=== PATIENT | female | born 1985 | race American Indian/Alaskan Native ===

== ENCOUNTER 2017-07-01 18:40 | Observation (INO) | payer BC ==
[2017-07-01] MEDS ORDERED: ASPIRIN PO ONE (18:59)
[2017-07-01 19:26] LABS: Basophils # (Auto) 0.1 K/mm3 (0.0-0.1); Basophils % (Auto) 0.5 % (0.0-1.8); Eosinophils # (Auto) 0.1 K/mm3 (0.0-0.4); Eosinophils % (Auto) 0.7 % (0.0-4.3); Hemoglobin 13.2 gm/dl (10.1-14.3); Lymphocytes # (Auto) 2.7 K/mm3 (1.2-5.4); Lymphocytes % (Auto) 25.2 % (13.4-35.0); Monocytes # (Auto) 0.7 K/mm3 (0.0-0.8); Monocytes % (Auto) 6.6 % (0.0-7.3)
[2017-07-01 19:35] LABS: Hematocrit 38.9 % (30.3-42.9); Mean Corpuscular Volume 88 fl (79-97)
[2017-07-01 19:36] LABS: Mean Corpuscular HGB Conc 34 % (30-34); Mean Corpuscular Hemoglobin 30 pg (28-32); Mean Platelet Volume 7.1 fl (6-12); Platelet Count 385 K/mm3 (140-440); Red Cell Distribution Width 13.5 % (13.2-15.2)
[2017-07-01 20:13] LABS: BUN/Creatinine Ratio 13; Blood Urea Nitrogen 12 mg/dL (7-17); Calcium 9.1 mg/dL (8.4-10.2); Hemolysis Index 2
[2017-07-01] MEDS ORDERED: NITRO-BID 2% TP ONE (20:18)
--- NOTE | 2017-07-01 20:25 | Emergency Department Report ---
HPI - General Chief Complaint: Chest Pain Time Seen by Provider: 07/01/17 20:06 - HPI HPI: Room 5 The patient is a 32-year-old female presenting with chief complaint of chest pain. Patient states her symptoms began today with substernal chest pain described as a pressure and sharpness that has been intermittent. The patient states her pain is associated with shortness of breath and nausea but denies vomiting or diaphoresis. Patient denies cough or fever. The patient states she 's never had a stress test or cardiac catheterization. The patient states she has a family history of heart disease Location: Chest Duration: Intermittent times one day Quality: Pressure/sharp Severity: Currently 0/10 Modifying factors: [see above] Context: [see above] Mode of transportation: [not driving] ED Past Medical Hx - Past Medical History Previous Medical History?: No - Surgical History Past Surgical History?: Yes Hx Appendectomy: Yes Additional Surgical History: C/S x4, tonsillectomy - Family History Family history: no significant - Social History Smoking Status: Former Smoker (none 14 years) Substance Use Type: None (denies illicit drug use) ED Review of Systems ROS: Stated complaint: CHEST PAIN Other details as noted in HPI Constitutional: denies: diaphoresis, fever Respiratory: shortness of breath. denies: cough Cardiovascular: chest pain Gastrointestinal: nausea. denies: vomiting Physical Exam - Physical Exam Vital Signs: Vital Signs 07/01/17 07/01/17 18:55 20:13 Temperature 97.7 F 97.9 F Pulse Rate 88 77 Respiratory 18 19 Rate Blood Pressure 133/81 Blood Pressure 119/78 [Left] O2 Sat by Pulse 100 100 Oximetry Physical Exam: GENERAL: The patient is well-developed well-nourished female sitting on stretcher not appearing to be in acute distress. [] HEENT: Normocephalic. Atraumatic. Extraocular motions are intact. Patient has moist mucous membranes. NECK: Supple. Trachea midline CHEST/LUNGS: Clear to auscultation. There is no respiratory distress noted. HEART/CARDIOVASCULAR: Regular. There is no tachycardia. There is no gallop rub or murmur. ABDOMEN: Abdomen is soft, nontender. Patient has normal bowel sounds. There is no abdominal distention. SKIN: There is no rash. There is no edema. There is no diaphoresis. NEURO: The patient is awake, alert, and oriented. The patient is cooperative. The patient has normal speech MUSCULOSKELETAL: There is no evidence of acute injury. ED Course Vital Signs 07/01/17 07/01/17 18:55 20:13 Temperature 97.7 F 97.9 F Pulse Rate 88 77 Respiratory 18 19 Rate Blood Pressure 133/81 Blood Pressure 119/78 [Left] O2 Sat by Pulse 100 100 Oximetry ED Medical Decision Making - Lab Data Result diagrams: 07/01/17 19:18 07/01/17 19:18 Laboratory Tests 07/01/17 07/01/17 07/01/17 19:18 19:18 19:18 WBC 10.6 RBC 4.40 Hgb 13.2 Hct 38.9 MCV 88 MCH 30 MCHC 34 RDW 13.5 Plt Count 385 Lymph % (Auto) 25.2 [place] % (Auto) 6.6 Eos % (Auto) 0.7 Baso % (Auto) 0.5 Lymph # 2.7 [place] # 0.7 Eos # 0.1 Baso # 0.1 Seg Neutrophils % 67.0 Seg Neutrophils # 7.1 D-Dimer < 135.00 Sodium 139 Potassium 4.9 Chloride 102.2 Carbon Dioxide 28 Anion Gap 14 BUN 12 Creatinine 0.9 Estimated GFR > 60 BUN/Creatinine Ratio 13 Glucose 96 Calcium 9.1 Troponin T < 0.010 HCG, Qual 07/01/17 19:18 WBC RBC Hgb Hct MCV MCH MCHC RDW Plt Count Lymph % (Auto) [place] % (Auto) Eos % (Auto) Baso % (Auto) Lymph # [place] # Eos # Baso # Seg Neutrophils % Seg Neutrophils # D-Dimer Sodium Potassium Chloride Carbon Dioxide Anion Gap BUN Creatinine Estimated GFR BUN/Creatinine Ratio Glucose Calcium Troponin T HCG, Qual Negative - EKG Data -: EKG Interpreted by Me EKG shows normal: sinus rhythm Rate: normal - EKG Data When compared to previous EKG there are: previous EKG unavailable Interpretation: other (no ischemic changes seen) - Radiology Data Radiology results: image reviewed (chest x-ray) interpreted by me: Chest x-ray-no focal infiltrates, no pneumothorax - Differential Diagnosis ACS, GERD, pericarditis, PE Critical care attestation.: If time is entered above; I have spent that time in minutes in the direct care of this critically ill patient, excluding procedure time. ED Disposition Clinical Impression: Chest pain Disposition: DC-09 OP ADMIT IP TO THIS HOSP Is pt being admited?: Yes Does the pt Need Aspirin: Yes Condition: Fair Instructions: Chest Pain (ED) Time of Disposition: 20:41 (hospitalist paged)
--- NOTE | 2017-07-01 20:44 | XRay Report ---
FINAL REPORT EXAM: XR CHEST 1V AP HISTORY: chest pain COMPARISON: None available. FINDINGS: Frontal view(s) of the chest obtained. Cardiac silhouette within normal limits. No gross consolidation or effusion. No pneumothorax. IMPRESSION: No grossly acute findings.
[2017-07-01] MEDS ORDERED: NITROSTAT SL PRN (22:32)
[2017-07-01] MEDS ORDERED: PROVENTIL IH PRN (22:32)
[2017-07-01] MEDS ORDERED: ZOFRAN IV PRN (22:32)
[2017-07-01] MEDS ORDERED: MILK OF MAGNESIA PO PRN (22:32)
[2017-07-01] MEDS ORDERED: DULCOLAX PR PRN (22:32)
[2017-07-01] MEDS ORDERED: AMBIEN PO PRN (22:32)
[2017-07-01] MEDS ORDERED: TYLENOL PO PRN (22:32)
[2017-07-01] MEDS ORDERED: ULTRAM PO PRN (22:32)
[2017-07-01] MEDS ORDERED: SODIUM CHLORIDE FLUSH SYRINGE 10 ML IV PRN (22:32)
--- NOTE | 2017-07-01 22:32 | History and Physical Report ---
History of Present Illness Date of examination: 07/01/17 Chief complaint: Chest pain History of present illness: The patient is a 32-year-old female presenting with chief complaint of chest pain. Patient states her symptoms began today with substernal chest pain described as a pressure and sharpness that has been intermittent. The patient states her pain is associated with shortness of breath and nausea but denies vomiting or diaphoresis. Patient denies cough or fever. The patient states she 's never had a stress test or cardiac catheterization. The patient states she has a family history of heart disease Past History Past Medical History: No medical history Past Surgical History: appendectomy, Other (The patient is a 32-year-old female presenting with chief complaint of chest pain. Patient states her symptoms began today with substernal chest pain described as a pressure and sharpness that has been intermittent. The patient states her pain is associated with shortness of breath and nausea but denies vomiting or diaphoresis. Patient denies cough or fever. The patient states she's never had a stress test or cardiac catheterization. The patient states she has a family history of heart disease) Social history: full code. denies: smoking, alcohol abuse Family history: no significant family history Medications and Allergies Allergies Allergy/AdvReac Type Severity Reaction Status Date / Time meperidine [From Demerol] Allergy Dizziness Verified 07/01/17 18:55 bandaids Allergy Rash Uncoded 07/01/17 18:55 steroids Allergy Rash Uncoded 07/01/17 18:55 tape Allergy Rash Uncoded 07/01/17 18:55 Home Medications Medication Instructions Recorded Confirmed Last Taken Type No Known Home Medications [No 07/01/17 07/01/17 Unknown History Reported Home Medications] Review of Systems All systems: negative (all 14 systems reviewed and found to be negative except as mentioned in HPI) Exam - Physical Exam Narrative exam: General: the patient is awake alert oriented to time place and person. no evidence of acute distress HEENT: Head is atraumatic normocephalic,. Pupils equal round reactive to light and accommodation, extraocular movements intact. Oral mucosa moist. Oropharynx clear. No pharyngeal erythema or tonsillar exudate. Neck: Supple no JVD no thyromegaly or lymphadenopathy. Heart: Regular rate and rhythm no murmurs or gallops. S1 and S2 normal. PMI not displaced. Lungs: Clear to auscultation bilaterally. No rales rhonchi wheezing. Nonlabored breathing. Normal chest wall expansion. Abdomen: Soft, nondistended, and nontender. Normoactive bowel sounds. No hepatosplenomegaly. No abdominal masses or bruit appreciated. Extremities: No cyanosis/clubbing/ edema. Musculoskeletal: Normal range of movement all joints. No obvious deformity or tenderness to palpation. Normal muscle tone. Back: Normal alignment. No step-off. No midline or paraspinal tenderness. No CVA tenderness. Neurological: Grossly intact and nonfocal. No cerebellar signs. Cranial nerves II-12 grossly intact. Strength 5 out of 5 all 4 extremities. Sensations grossly intact. Skin: Warm and dry no rashes or bruises. Psychiatric: Normal mood. Appropriate affect and good insight and judgment. Vascular system: No lymphadenopathy. Distal pulses 2+ bilaterally. - Constitutional Vitals: Temp Pulse Resp BP Pulse Ox 97.9 F 83 8 L 109/76 100 07/01/17 20:13 07/01/17 21:00 07/01/17 21:00 07/01/17 21:00 07/01/17 20:13 Results - Labs CBC & Chem 7: 07/01/17 19:18 07/01/17 19:18 Labs: Laboratory Last Values WBC 10.6 K/mm3 (4.5-11.0) 07/01/17 19:18 RBC 4.40 M/mm3 (3.65-5.03) 07/01/17 19:18 Hgb 13.2 gm/dl (10.1-14.3) 07/01/17 19:18 Hct 38.9 % (30.3-42.9) 07/01/17 19:18 MCV 88 fl (79-97) 07/01/17 19:18 MCH 30 pg (28-32) 07/01/17 19:18 MCHC 34 % (30-34) 07/01/17 19:18 RDW 13.5 % (13.2-15.2) 07/01/17 19:18 Plt Count 385 K/mm3 (140-440) 07/01/17 19:18 Lymph % (Auto) 25.2 % (13.4-35.0) 07/01/17 19:18 [place] % (Auto) 6.6 % (0.0-7.3) 03/03/18 19:18 Eos % (Auto) 0.7 % (0.0-4.3) 07/01/17 19:18 Baso % (Auto) 0.5 % (0.0-1.8) 07/01/17 19:18 Lymph # 2.7 K/mm3 (1.2-5.4) 07/01/17 19:18 [place] # 0.7 K/mm3 (0.0-0.8) 07/01/17 19:18 Eos # 0.1 K/mm3 (0.0-0.4) 07/01/17 19:18 Baso # 0.1 K/mm3 (0.0-0.1) 07/01/17 19:18 Seg Neutrophils % 67.0 % (40.0-70.0) 07/01/17 19:18 Seg Neutrophils # 7.1 K/mm3 (1.8-7.7) 07/01/17 19:18 D-Dimer < 135.00 ng/mlDDU (0-234) 07/01/17 19:18 Sodium 139 mmol/L (137-145) 07/01/17 19:18 Potassium 4.9 mmol/L (3.6-5.0) 07/01/17 19:18 Chloride 102.2 mmol/L (98-107) 07/01/17 19:18 Carbon Dioxide 28 mmol/L (22-30) 07/01/17 19:18 Anion Gap 14 mmol/L 07/01/17 19:18 BUN 12 mg/dL (7-17) 07/01/17 19:18 Creatinine 0.9 mg/dL (0.7-1.2) 07/01/17 19:18 Estimated GFR > 60 ml/min 07/01/17 19:18 BUN/Creatinine Ratio 13 % 07/01/17 19:18 Glucose 96 mg/dL (65-100) 07/01/17 19:18 Calcium 9.1 mg/dL (8.4-10.2) 07/01/17 19:18 Troponin T < 0.010 ng/mL (0.00-0.029) 07/01/17 21:58 HCG, Qual Negative (Negative) 07/01/17 19:18 - Imaging and Cardiology Imaging and Cardiology: EKG showing normal sinus rhythm negative for acute ischemia or other arrhythmia Chest x-ray showing no acute cardiopulmonary process Assessment and Plan Assessment and plan: Assessment and plan - * Chest pain rule out acute coronary syndrome Plan - Admit patient to medical floor with telemetry Follow the chest pain protocol get serial cardiac enzymes nothing by mouth past midnight Lexiscan nuclear medicine cardiac stress test in a.m. IV fluids When necessary nitroglycerin for chest pain Monitor CBC and electrolytes Replace electrolytes when necessary aspirin protocol DVT GI prophylaxis as ordered Monitor follow the patient closely VTE prophylaxis?: Chemical, Mechanical Plan of care discussed with patient/family: Yes
[2017-07-01] MEDS ORDERED: MORPHINE IV PRN (22:52)
[2017-07-01] MEDS ORDERED: NACL 0.9% 1000 ML 1,000 ML IV SCH (23:00)
[2017-07-01 23:05] LABS: Basophils % (Auto) 0.4 % (0.0-1.8); Eosinophils # (Auto) 0.1 K/mm3 (0.0-0.4); Eosinophils % (Auto) 0.6 % (0.0-4.3); Hematocrit 37.2 % (30.3-42.9); Hemoglobin 12.4 gm/dl (10.1-14.3); Lymphocytes # (Auto) 3.5 K/mm3 (1.2-5.4); Lymphocytes % (Auto) 32.3 % (13.4-35.0); Mean Corpuscular HGB Conc 33 % (30-34); Mean Corpuscular Hemoglobin 30 pg (28-32); Mean Corpuscular Volume 89 fl (79-97); Monocytes # (Auto) 0.8 K/mm3 (0.0-0.8); Monocytes % (Auto) 7.3 % (0.0-7.3); Platelet Count 383 K/mm3 (140-440); Red Blood Count 4.18 M/mm3 (3.65-5.03); Red Cell Distribution Width 13.1 % (13.2-15.2)
[2017-07-01 23:22] LABS: BUN/Creatinine Ratio 19; Blood Urea Nitrogen 15 mg/dL (7-17); Calcium 8.6 mg/dL (8.4-10.2); Hemolysis Index 6
[2017-07-02 00:43] LABS: Chol/HDL Ratio 2.92 %
[2017-07-02 01:49] LABS: Creatine Kinase MB < 1.0 ng/mL (0.0-4.0)
[2017-07-02 06:46] LABS: Basophils % (Auto) 0.5 % (0.0-1.8); Eosinophils # (Auto) 0.1 K/mm3 (0.0-0.4); Eosinophils % (Auto) 1.2 % (0.0-4.3); Hematocrit 35.9 % (30.3-42.9); Hemoglobin 12.3 gm/dl (10.1-14.3); Lymphocytes % (Auto) 35.2 % (13.4-35.0); Mean Corpuscular HGB Conc 34 % (30-34); Mean Corpuscular Hemoglobin 30 pg (28-32); Mean Corpuscular Volume 89 fl (79-97); Monocytes # (Auto) 0.6 K/mm3 (0.0-0.8); Monocytes % (Auto) 7.2 % (0.0-7.3); Platelet Count 351 K/mm3 (140-440); Red Blood Count 4.03 M/mm3 (3.65-5.03); Red Cell Distribution Width 13.7 % (13.2-15.2)
[2017-07-02 07:24] LABS: Creatine Kinase MB < 1.0 ng/mL (0.0-4.0)
[2017-07-02 07:56] LABS: Alanine Aminotransferase 6 units/L (7-56); Albumin 3.3 g/dL (3.9-5); BUN/Creatinine Ratio 26; Blood Urea Nitrogen 18 mg/dL (7-17); Calcium 8.6 mg/dL (8.4-10.2); Hemolysis Index 4
[2017-07-02] MEDS ORDERED: LEXISCAN IV ONE ×2 (08:18→08:21)
[2017-07-02] MEDS ORDERED: ECOTRIN PO SCH (10:00)
[2017-07-02] MEDS ORDERED: LOVENOX SUB-Q SCH (10:00)
[2017-07-02] MEDS ORDERED: PEPCID PO SCH (10:00)
[2017-07-02 13:46] LABS: Creatine Kinase MB < 1.0 ng/mL (0.0-4.0)
--- NOTE | 2017-07-02 15:22 | Discharge Summary ---
Providers - Providers Date of Admission: 07/01/17 22:32 Date of discharge: 07/02/17 Attending physician: NISHANT OCASIO Hospitalization Reason for admission: chest pain of one-day duration Condition: Fair Pertinent studies: Stress test; normal study, normal left ventricle function Hospital course: Very pleasant obese female patientsignificant past medical history is admitted through emergency room with chest pain patient was initially evaluated admitted to the hospital, symptomatically managed Subsequently underwent stress test which was negative for reversible ischemia, and normal left ventricle function ejection fraction Patient's symptoms significantly improved Patient is morbidly obese with BMI of 33.2, counseling done patient advised dietary modification, exercise as tolerated and weight reduction when medically stable Patient's chest pain may be because of costochondritis as well as gastroesophageal reflux disease Patient counseled to take [id number] pain medication should she have recurrent chest wall pain A prescription of Pepcid was given to the patient Advised to follow cardiology should she have recurrent chest pain for further evaluation Patient also advised to see GI as needed Today she is comfortable no new complaints Vital signs stable, chest pain or shortness of breath Ambulating and tolerating oral nutrition Physical examination prior to discharge is unremarkable. Patient is hemodynamically and clinically stable for discharge and does not need any further acute inpatient care at this time Discharge diagnosis: Atypical chest pain; probably secondary to GERD Gastroesophageal reflux disease Costochondritis Obesity; BMI 33.2 Disposition: AR-01 TO HOME OR SELFCARE Time spent for discharge: 31min Core Measure Documentation - Palliative Care Palliative Care/ Comfort Measures: Not Applicable - Core Measures Any of the following diagnoses?: none Exam - Constitutional Vitals: Temp Pulse Resp BP Pulse Ox 97.8 F 81 20 99/49 98 07/02/17 05:10 07/02/17 05:10 07/02/17 05:10 07/02/17 05:10 07/02/17 05:10 General appearance: Present: no acute distress, well-nourished, obese - EENT Eyes: Present: PERRL, EOM intact - Neck Neck: Present: supple, normal ROM - Respiratory Respiratory effort: normal Respiratory: bilateral: diminished, negative: rales, rhonchi, wheezing - Cardiovascular Rhythm: regular Heart Sounds: Present: S1 & S2 - Extremities Extremities: no ischemia, No edema - Abdominal General gastrointestinal: Present: soft, non-tender, non-distended, normal bowel sounds - Integumentary Integumentary: Present: clear, warm - Musculoskeletal Musculoskeletal: strength equal bilaterally, generalized weakness - Psychiatric Psychiatric: appropriate mood/affect, cooperative - Neurologic Neurologic: CNII-XII intact, moves all extremities Plan Activity: no restrictions Diet: other (cardiac diet) Special Instructions: other (exercise as tolerated and weight reduction) Additional Instructions: If you have chest pain or shortness of breath, contact M.D. or go to emergency room. Advice diet modification ,exercise as tolerated and weight reduction when medically stable Follow up with: CHAD ANDERSON MD [Staff Physician] - 7 Days HIREN DE LA CRUZ MD [Staff Physician] - 7 Days Prescriptions: Famotidine [Pepcid] 20 mg PO BID #30 tablet
[2017-07-04 13:35] VITALS: BP 112/70
--- NOTE | 2017-07-04 18:20 | Treadmill Report ---
THALLIUM STRESS TEST LEFT VENTRICLE: Left ventricular chamber size is within normal spread. Perfusion study demonstrates mild breast attenuation artifact, otherwise homogeneous uptake of the tracer in all segments. No significant perfusion defects identified. Gated analysis demonstrates normal left ventricular systolic function, ejection fraction of 60%. CONCLUSION: Normal myocardial perfusion study. JOB# [id number] CA/NTS
== END 2017-07-02 17:45 | disposition home or self-care (01) ==
LOC: ED 18:40 → 4A 22:32
PROVIDERS: ADMIT Internal Medicine Geriatric Medicine; ATTEND Internal Medicine
DX: M94.0 Chondrocostal junction syndrome [Tietze] (principal); K21.9 Gastro-esophageal reflux disease without esophagitis; E66.9 Obesity, unspecified; Z68.33 Body mass index [BMI] 33.0-33.9, adult; Z82.49 Family history of ischemic heart disease and other diseases of the circulatory system; Z87.891 Personal history of nicotine dependence
CPT/HCPCS: 36415; 71045; 78452; 80048; 80053; 80061; 82550; 82553; 83036; 84484; 84703; 85025; 85379; 93005; 93010; 93017; 93306; 96360; 96361; 96372; 99284; A9502; G0378; J1650; J2785; J7030; 96374